=== PATIENT | male | born 1950 | race Caucasian/White ===

== ENCOUNTER 2023-01-31 13:06 | Emergency (ER) | payer MEDICARE, OTHER ==
[~2023-01-31] VITALS: Ht 165.1 cm; Wt 72.6 kg
[2023-01-31 13:24] VITALS: BP 135/74
[2023-01-31 14:23] LABS: BASOPHILS % (AUTO) 0.3 % (0.0-5.0); HEMATOCRIT 48.8 % (42-54); LYMPHOCYTES % (AUTO) 10.6 % (21.0-51.0); MEAN CORPUSCULAR HEMOGLOBIN 30.7 pg (27.0-33.0); MEAN CORPUSCULAR HGB CONC 32.8 g/dL (32.0-36.0); MEAN CORPUSCULAR VOLUME 93.7 fL (79-99); MONOCYTES % (AUTO) 7.4 % (3.0-13.0); NEUTROPHILS % (AUTO) 80.4 % (40.0-77.0); PLATELET COUNT (AUTO) 128 K/uL (130-400); RED BLOOD CELL COUNT(AUTO) 5.21 MIL/uL (4.50-6.20); RED CELL DISTRIBUTION WIDTH 13.9 % (11.0-15.5)
[2023-01-31 14:33] LABS: CREATININE 1.2 mg/dL (0.5-1.5); POTASSIUM 4.6 mmol/L (3.5-5.1)
[2023-01-31 14:41] LABS: ALBUMIN 3.9 g/dL (3.5-5.0); TOTAL PROTEIN, SERUM 7.3 g/dL (6.0-8.3)
[2023-01-31] MEDS ORDERED: LORA10TA7 PO (17:41)
[2023-01-31] MEDS ORDERED: IBUP-2070 PO (17:41)
[2023-01-31] MEDS: IBUPROFEN 600 MG TABLET PO ONE ×2 (17:49→17:53)
[2023-02-03] MEDS ORDERED: ASCO-360 PO (18:33)
[2023-02-03] MEDS ORDERED: FINA5TAB41 PO (18:33)
[2023-02-03] MEDS ORDERED: [UNRECOGNIZED DRUG - OTHER] (18:33)
[2023-02-03] MEDS ORDERED: [UNRECOGNIZED DRUG - CODE] (18:33)
[2023-02-03] MEDS ORDERED: METO-391 PO (18:33)
[2023-02-03] MEDS ORDERED: AMIO150P5 IV (18:33)
[2023-02-03] MEDS ORDERED: CLOP75TA32 PO (18:33)
[2023-02-03] MEDS ORDERED: SACU1TAB7 PO (18:33)
[2023-02-03] MEDS ORDERED: TAMS-1 PO (18:33)
[2023-02-03] MEDS ORDERED: EMPA10TA PO (18:33)
[2023-02-03] MEDS ORDERED: SACU1TAB PO (18:33)
[2023-02-03] MEDS ORDERED: ZINC100T2 PO (18:33)
[2023-02-03] MEDS ORDERED: APIX5TAB PO (18:33)
[2023-02-03] MEDS ORDERED: METO-408 PO (18:33)
[2023-02-03] MEDS ORDERED: ROSU20TA31 PO (18:33)
[2023-02-05] MEDS ORDERED: METH4TAB3 PO (08:21)
[2023-02-05] MEDS ORDERED: AMOX1TAB16 PO (08:21)
[2023-02-05] MEDS ORDERED: LEVO50TA4 PO (11:00)
== END 2023-01-31 17:53 | disposition home or self-care (01) ==
LOC: EDH 13:06
DX: J02.8 Acute pharyngitis due to other specified organisms (principal); H92.02 Otalgia, left ear; I10 Essential (primary) hypertension; I25.2 Old myocardial infarction; Z20.822 Contact with and (suspected) exposure to COVID-19
CPT/HCPCS: 99284; 87635; 84484; 80053; 85025; 87880; 87804 ×2; 36415; 93005; C9803